=== PATIENT | male | born 1940 | race Caucasian/White ===

== ENCOUNTER 2022-11-19 21:21 | Inpatient (IN) | payer MEDICARE, BC ==
[~2022-11-19] VITALS: Ht 177.8 cm; Wt 65.8 kg
[2022-11-19 22:14] LABS: BASOPHILS ABSOLUTE AUTO 0.03 K/mm3 (0.00-0.23); BASOPHILS PERCENT AUTO 0 % (0-2); EOSINOPHILS ABSOLUTE AUTO 0.01 K/mm3 (0.00-0.68); EOSINOPHILS PERCENT AUTO 0 % (0-6); Hematocrit 44.6 % (37.0-53.0); Hemoglobin 15.7 g/dL (13.5-17.5); IMMATURE GRAN ABSOLUTE AUTO 0.08 K/mm3 (0.00-0.10); IMMATURE GRAN PERCENT AUTO 1 % (0-1); LYMPHOCYTES ABSOLUTE AUTO 0.47 K/mm3 (0.84-5.20); LYMPHOCYTES PERCENT AUTO 3 % (21-46); MONOCYTES ABSOLUTE AUTO 0.75 K/mm3 (0.16-1.47); MONOCYTES PERCENT AUTO 5 % (4-13); Mean Corpuscular HGB 31.7 pg (26.0-34.0); Mean Corpuscular HGB Conc 35.2 g/dL (31.5-36.5); Mean Corpuscular Volume 90 fL (80-100); Mean Platelet Volume 10.2 fL (9.1-12.4); NEUTROPHILS ABSOLUTE AUTO 14.95 K/mm3 (1.96-9.15); NEUTROPHILS PERCENT AUTO 92 % (41-73); Platelet Count 177 K/mm3 (150-400); RDW Coefficient Variation 12.9 % (11.7-14.2); RDW Standard Deviation 42.2 fL (35.1-46.3); Red Blood Cell Count 4.96 M/mm3 (4.30-5.90); White Blood Cell Count 16.29 K/mm3 (4.00-11.30)
[2022-11-19 22:32] LABS: Albumin, Blood 3.5 g/dL (3.4-5.0); Bilirubin, Total 1.2 mg/dL (0.1-1.0); Globulin, Blood 3.5 g/dL (2.2-4.0); Potassium, Blood 3.8 mmol/L (3.5-5.5)
[2022-11-20 02:11] VITALS: BP 189/94
[2022-11-20 03:12] VITALS: BP 201/99
--- NOTE | 2022-11-20 05:32 | NUR ---
shift assessment admit pt a/o no c/o pain states strength coming back but coordination still bad, pt cant write name so far. bp elevated and md was informed, NO NEW ORDERS. CONDOM CATH DRAINING.
[2022-11-20 05:49] LABS: Albumin, Blood 3.2 g/dL (3.4-5.0); Albumin/Globulin Ratio 1.1 (0.8-1.8); Bilirubin, Total 1.2 mg/dL (0.1-1.0); Calcium, Blood 8.5 mg/dL (8.5-10.1); Potassium, Blood 3.6 mmol/L (3.5-5.5); Total Protein, Blood 6.2 g/dL (6.4-8.2)
[2022-11-20 07:33] VITALS: BP 185/89
--- NOTE | 2022-11-20 17:03 | NUR ---
PATIENT A/OX3-4, FORGETFUL AT TIMES. WORKED WITH PT/OT/ST TODAY. UP WITH FWW AND 2 ASSIST TO CHAIR. L SIDE VERY WEAK, POOR COORDINATION. FAILED SWALLOW STUDY TODAY. PATIENT IS NOT INTERESTED IN HAVING A FEEDING TUBE AND WAS TOLD OF RISKS, BUT WANTS TO CONTINUE EATING. PLACED ON FULL LIQUID DIET. B/P REMAINS HIGH, HYDRALAZINE ORDERED PRN FOR SBP GREATER THAN 220. PATIENT IMPULSIVE AT TIMES, FALL PRECAUTIONS IN PLACE.
[2022-11-20 20:07] VITALS: BP 180/94
[2022-11-21 02:25] VITALS: BP 183/93
--- NOTE | 2022-11-21 05:57 | NUR ---
SHIFT SUMMARY PT LAYING IN BED DURING BEDSIDE REPORT, PT DENIED PAIN/SOB- PT IMPULSIVE AND SET OFF BED ALARM IN NIGHT, PT BALANCE OFF- PT FALLS BACK IN BED AND LEANS TO LEFT SIDE- REMOVED ITEMS THAT PT WAS TRYING TO REACH FOR NEXT TO BED TO REDUCE RISK OF FALLING OUT OF BED- PT REORIENTED T/O NIGHT AND REMINDED TO CALL FOR ASSISTANCE, REMOVED LEFT AC IV - IV LEAKING- RIGHT FOREARM IV IN PLACE AND FLUSHES WITHOUT PROBLEMS, BED LOW POSITION, CALL LIGHT WITHIN REACH
[2022-11-21 07:58] VITALS: BP 189/89
[2022-11-21 12:32] VITALS: BP 147/86
--- NOTE | 2022-11-21 18:39 | NUR ---
SHIFT SUMMARY PT A&OX4 AND IN PLEASENT MOOD T/O SHIFT. BED ALARM ON DUE TO IMPULSIVENESS. PT C/O OF FULL LIQUID DIET-SPEECH THERAPY NO LONGER FOLLOWING PT. TOLERATING DIET WELL. CALL LIGHT W/ IN REACH. 1X STAND PIVOT, 2X FWW W/ AMBULATION.
[2022-11-21 19:38] VITALS: BP 164/86
[2022-11-22 03:47] VITALS: BP 158/94
--- NOTE | 2022-11-22 05:47 | NUR ---
SHIFT SUMMARY PT LAYING IN BED DURING BEDSIDE REPORT- ASSISTED PT WITH CHANGING BRIEF- PT EXPRESSED BEING FRUSTRATED BECAUSE HE WANTS TO GO HOME AND HE WANTS TO EAT- EXPLAINED TO PT THAT HE WOULD BENEFIT FROM REHAB- PT DISAGREED AND STATED THAT HE IS GETTING BETTER AND CAN GO HOME AND GET BETTER- HE STATED THAT HE WANTED TO GO HOME TO EAT TOO- REMINDED PT THAT HE IS ON A FULL LIQUID DIET AND HE DISAGREED AND STATED THAT HE HAS NO SWALLOW ISSUES- SPOKE WITH PT RE: IMPORTANCE OF FOLLOWING DIRECTION AND ALLOWING SELF TO REHAB- PT CONTINUED TO DISAGREE AND PT UNABLE TO COMPREHEND HIS DEFICITS -WILL CONTINUE TO REORIENT PT OF SITUATION- PT SLEPT T/O NIGHT AND DENIED PAIN/SOB, BED LOW POSITION, CALL LIGHT WITHIN REACH, BED ALARM IN PLACE
[2022-11-22 08:02] VITALS: BP 151/79
[2022-11-22 16:46] VITALS: BP 140/82
--- NOTE | 2022-11-22 17:54 | NUR ---
SHIFT SUMMARY A&O X 4. CAN BE FORGETFUL OF HIS ACTIVITY/MOBILITY LIMITATIONS. L SIDED WEAKNESS. STATES HE FEELS MORE 'POOPED' TODAY, NOT MUCH 'GET UP & GO'. PARTICIPATED WITH PT & OT TODAY (SEE THERAPY NOTES). HAS BEEN IN THE ROOM MOST OF SHIFT, BOTH EDUCATED ON IGNITION SOURCES AND RISK OF INJURY WHILE O2 IS IN USE. PT & PT'S DENY SMOKING, BOTH STATE THEY UNDERSTAND THE RISK OF SMOKING ITSELF LET ALONE THE DANGER OF SMOKING IN THE PRESENCE OF O2. THIS AFTERNOON PT DEVELOPED A TEMP 101.2. PLACED A CALL TO DR. AUSTIN, ORDERS RECEIVED FOR TYLENOL. GIVEN ORDERED. TEMP IS DOWN TO 100.2. PLAN IS LIKELY DC TO REHAB/SNF.
[2022-11-22 19:15] VITALS: BP 128/76
[2022-11-23 04:29] VITALS: BP 164/95
--- NOTE | 2022-11-23 05:30 | NUR ---
SHIFT SUMMARY PT LAYING IN BED DURING BEDSIDE REPORT= PT DENIED PAIN/SOB AT TIME OF ASSESSMENT- IGNITION RISK ASSESSMENT DONE T/O SHIFT- PT REPORTS DOESN'T SMOKE AND DOESN'T HAVE ANY FORM OF [place] L[place]LE OR IGNITION- CHANGED BANDAGE TO SKIN TEAR IN UPPER LEFT ARM- PT TOLERATED WELL, PT INCONTIENT T/O NIGHT- PT CHANGED AND OFFERED REPOSITIONING- PT ABLE TO REPOSITION SELF- SPOKE WITH PT RE: DISCHARGING TO A REHAB- HE STATED THAT HE WANTED TO GO HOME BUT HIS WHO IS A RETIRED RN ENCOURAGED HIM TO GO TO REHAB SO HE CAN COME HOME IN THE FUTURE, BED LOW POSITION, CALL LIGHT WITHIN REACH, BED ALARM IN PLACE
[2022-11-23 07:44] VITALS: BP 147/89
[2022-11-23 16:26] VITALS: BP 142/87
[2022-11-23 19:40] VITALS: BP 114/88
--- NOTE | 2022-11-23 19:52 | NUR ---
SHIFT SUMMARY PT A&O X 4. VSS. PT WILLINGLY PARTICIPATED WITH PT TODAY. (SEE PHYS THERAPY NOTES). APPETITE IS GOOD, IS BRINGING IN PT'S PREFERRED FOODS. DRSNG ON L ARM TEAR C/D/I. BED ALARM ON. PLAN IS DC TO REHAB/SNF UPON DC ONCE BED AVAILABLE.
--- NOTE | 2022-11-24 03:58 | NUR ---
WOUND DRESSING PT REQUESTED BANDAGES TO BE CHANGED TO LEFT UPPER ARM. NON ADHERANT DRESSING AND NON STICK PETROLIUM DRESSING PLACED TO SKIN TEAR AND RE-COVERED WITH GAUZE WRAP AND TUBING SLEEVE.
[2022-11-24 04:00] LABS: BASOPHILS ABSOLUTE AUTO 0.04 K/mm3 (0.00-0.23); BASOPHILS PERCENT AUTO 0 % (0-2); EOSINOPHILS ABSOLUTE AUTO 0.19 K/mm3 (0.00-0.68); EOSINOPHILS PERCENT AUTO 2 % (0-6); Hematocrit 41.3 % (37.0-53.0); Hemoglobin 14.6 g/dL (13.5-17.5); IMMATURE GRAN ABSOLUTE AUTO 0.03 K/mm3 (0.00-0.10); IMMATURE GRAN PERCENT AUTO 0 % (0-1); LYMPHOCYTES ABSOLUTE AUTO 0.72 K/mm3 (0.84-5.20); LYMPHOCYTES PERCENT AUTO 8 % (21-46); MONOCYTES ABSOLUTE AUTO 0.86 K/mm3 (0.16-1.47); MONOCYTES PERCENT AUTO 10 % (4-13); Mean Corpuscular HGB 31.5 pg (26.0-34.0); Mean Corpuscular HGB Conc 35.4 g/dL (31.5-36.5); Mean Corpuscular Volume 89 fL (80-100); Mean Platelet Volume 10.8 fL (9.1-12.4); NEUTROPHILS ABSOLUTE AUTO 7.11 K/mm3 (1.96-9.15); NEUTROPHILS PERCENT AUTO 80 % (41-73); Platelet Count 158 K/mm3 (150-400); RDW Coefficient Variation 12.6 % (11.7-14.2); RDW Standard Deviation 41.5 fL (35.1-46.3); Red Blood Cell Count 4.64 M/mm3 (4.30-5.90); White Blood Cell Count 8.95 K/mm3 (4.00-11.30)
[2022-11-24 04:24] LABS: Bun/Creatinine Ratio 25.1 (12.0-20.0); Calcium, Blood 8.4 mg/dL (8.5-10.1); Potassium, Blood 3.9 mmol/L (3.5-5.5)
--- NOTE | 2022-11-24 06:37 | NUR ---
SHIFT SUMMARY PT ADMIT FOR INFARCT W/ LEFT SIDE WEAKNESS. A&OX4, COOPERATIVE W/ CARE. PT DENIES PAIN, SOB, N/V, N/T, ALTHOUGH WEAKNESS TO LEFT SIDE. 1 ASSIST FOR BSC. DRESSINGS TO LEFT UPPER ARM C/D/I AND R/T FALL AT HOME PRIOR TO RECENT CVA ADMISSION. PT ALSO HAS RANDOM SCRAPES AND BANDAGES TO SKIN TEARS R/T FALLS AT HOME TO L KNEE, HAND. PT USE OF ATTENDS R/T URGENCY INCONT AND ASSISTED TO CHANGE. PT ABLE TO TURN, LIFT FOR CHANGING ATTENDS. PLANS FOR DISCHARGE TO IRU IN [place] FOR REHAB. PT REPORTED REQUIRES HIM TO AMBULATE PRIOR TO RETURN HOME. NO ACUTE CHANGES THIS SHIFT. CALL LIGHT W/IN REACH.
[2022-11-24 15:27] VITALS: BP 142/85
--- NOTE | 2022-11-24 16:04 | NUR ---
PATIENT & FAMILY EDUCATED RE: IGNITION SOURCES & RISK OF INJURY WHILE O2 IS IN USE. PT DENIES SMOKING, BOTH PT & FAMILY VERBALIZE UNDERSTANDING.
--- NOTE | 2022-11-24 16:26 | NUR ---
SHIFT SUMMARY A&O X 4. VSS. PT UP TO CHAIR WITH 1 PERSON MIN ASSIST WITH GB & FWW. L SIDE WEAK THOUGH PT IS DOING BETTER WITH STRENGTH AND STABILITY. (SEE PHYS THERAPY NOTES) IN TO VISIT TODAY. PT IS PLEASANT & COOPERATIVE WITH ALL CARE. IS INC OF URINE AT TIMES. PT SAT UP IN CHAIR FOR BFAST AND REMAINED UP FOR A FEW HRS. PLAN IS FOR REHAB/SNF UPON DC. CALL LIGHT WITHIN REACH & BED IN LOW POSITION.
--- NOTE | 2022-11-24 16:36 | NUR ---
ASSUMING CARE OF PT
--- NOTE | 2022-11-24 16:37 | NUR ---
REPORT GIVEN TO RECEIVING RN, PRESLEY.
[2022-11-24 19:31] VITALS: BP 181/87
[2022-11-24 22:11] VITALS: BP 156/86
[2022-11-25 04:29] VITALS: BP 160/85
--- NOTE | 2022-11-25 05:34 | NUR ---
SHIFT SUMMARY ADMIT FOR CVA W/ L SIDE WEAKNESS. A&OX4, PLEASANT AND COOPERATIVE W/ CARE. PT EXPERIENCING BOWEL AND BLADDER INCONTINENCE W/ USE OF ATTENDS AND MAN PADS. SKIN TEAR TO LEFT UPPER ARM REDRESSED THIS SHIFT W/ XERO FORM PATROLIUM GAUZE, NON STICK DRESSING, AND WRAPPED W/ ROLLED GAUZE THEN COVERED WITH MESH TUBING. PT USE OF LEFT LEG BETTER THAN PREVIOUS SHIFT AND CONTINUES TO HAVE WEAKNESS TO LEFT ARM. PT FIDGETS W/ COVERS FREQUENTLY, UNSURE IF THIS WAS PREVIOUS [facility]. PT AWAITING ON REHAB PLACEMENT, POSSIBLY IN [place] TODAY. NO ACUTE CHANGES THIS SHIFT, WILL REPORT OFF TO DAY SHIFT STAFF.
[2022-11-25 07:52] VITALS: BP 183/86
[2022-11-25 15:49] VITALS: BP 149/76
--- NOTE | 2022-11-25 18:12 | NUR ---
SUMMARY NO ACUTE CHANGES T/O SHIFT. PT WORKED WITH THERAPY. HAD SHOWER THIS SHIFT. INCONTINENT OF URINE AT TIMES, WELL BOWELS. GOT UP THIS AFTERNOON WITH 1 PERSON MOD ASSIST TO BSC USING GAIT BELT AND TORI WALKER. HAD SOFT BROWN BM. PLAN TO DC TOMORROW TO REGISTER IRU. REVIEWED FIRE SAFETY WITH PT AND SPOUSE; VERBALIZED UNDERSTANDING AND DENIED ANY TOBACCO, MATCHES OR LIGHTERS. CALL LIGHT IN REACH.
[2022-11-25 23:02] VITALS: BP 156/87
[2022-11-26 07:29] VITALS: BP 147/94
--- NOTE | 2022-11-26 07:42 | NUR ---
SHIFT SUMMARY AOX4. VSS. DENIES PAIN, N/V OR DYSPNEA. HAS LUE WEAKNESS c GROSS MOVEMENT & CAN WIGGLE L HAND FINGERS. DENIES N/T. ABLE TO FEEL TOUCH. 1P ASSIST c TORI WALKER TO BSC. PLAN TO POSSIBLY DC TO [facility] THIS AM. CALL LIGHT IN REACH.
[2022-11-26] MEDS ORDERED: AMLO5 PO (11:35)
[2022-11-26] MEDS ORDERED: ATOR40TA PO (11:35)
[2022-11-26] MEDS ORDERED: ASPI81CH PO (11:35)
[2022-11-26] MEDS ORDERED: ACET325 PO (11:35)
[2022-11-26] MEDS ORDERED: CLOP75 PO (11:36)
[2022-11-26] MEDS ORDERED: LOSA50 PO (11:36)
--- NOTE | 2022-11-26 11:45 | NUR ---
REPORT TO [facility] REPORT CALLED TO ADALBERTO BROWN AT [facility]. CONTINUE POC.
--- NOTE | 2022-11-26 12:06 | NUR ---
DISCHARGE PT IV REMOVED PRESSURE DRESSING APPLIED. REPORT CALLED. PT TANSPORTED AND ASSISTED INTO CAR FROM W/C. PT DID VERY WELL. CONTINUE POC.
== END 2022-11-26 11:51 | DRG 64 ==
LOC: ER 21:21 → MEDS 21:22 → ERHOLD 21:22 → ER 21:22 → MEDS 11-20 01:55 → ERHOLD 11-20 01:55 → MEDS 11-20 13:06
PROVIDERS: Family Medicine; Internal Medicine; Student in an Organized Health Care Education/Training Program; ADMIT Internal Medicine
DX: I63.89 Other cerebral infarction (principal); E43 Unspecified severe protein-calorie malnutrition; G81.94 Hemiplegia, unspecified affecting left nondominant side; I10 Essential (primary) hypertension; D72.828 Other elevated white blood cell count; R50.9 Fever, unspecified; R29.810 Facial weakness; T14.8XXA Other injury of unspecified body region, initial encounter; I65.01 Occlusion and stenosis of right vertebral artery; I65.23 Occlusion and stenosis of bilateral carotid arteries; R91.8 Other nonspecific abnormal finding of lung field; R13.13 Dysphagia, pharyngeal phase; Z91.148 Patient's other noncompliance with medication regimen for other reason; Z87.891 Personal history of nicotine dependence; Z68.20 Body mass index [BMI] 20.0-20.9, adult; X58.XXXA Exposure to other specified factors, initial encounter
CPT/HCPCS: 36415; 70450; 70496; 70498; 70551; 71045; 74230; 80048; 80053; 85025; 92610; 92611; 93005; 93010; 93306; 96372; 97110; 97112; 97116; 97162; 97166; 97530; 97535; 99285-25; A9270; G0378; J1650; Q9967

== ENCOUNTER 2024-06-11 20:12 | Emergency (ER) | payer BC ==
[~2024-06-11] VITALS: Ht 177.8 cm; Wt 63.5 kg
[~2024-06-11 20:12] MED LIST: ACET325 PO; AMLO5 PO; ASPI81CH PO; ATOR40TA PO; CEFP200 PO; CLOP75 PO; LOSA50 PO; OXYC5 PO
[2024-06-11] MEDS ORDERED: TAMS.4ER PO (20:23)
[2024-06-11] MEDS ORDERED: NS 500 ML IV SCH (20:30)
[2024-06-11 21:03] LABS: BASOPHILS ABSOLUTE AUTO 0.06 K/mm3 (0.00-0.23); BASOPHILS PERCENT AUTO 0 % (0-2); EOSINOPHILS ABSOLUTE AUTO 0.13 K/mm3 (0.00-0.68); EOSINOPHILS PERCENT AUTO 1 % (0-6); Hematocrit 35.6 % (37.0-53.0); Hemoglobin 12.1 g/dL (13.5-17.5); IMMATURE GRAN ABSOLUTE AUTO 0.08 K/mm3 (0.00-0.10); IMMATURE GRAN PERCENT AUTO 0 % (0-1); LYMPHOCYTES ABSOLUTE AUTO 0.43 K/mm3 (0.84-5.20); LYMPHOCYTES PERCENT AUTO 2 % (21-46); MONOCYTES ABSOLUTE AUTO 1.03 K/mm3 (0.16-1.47); MONOCYTES PERCENT AUTO 6 % (4-13); Mean Corpuscular HGB 30.4 pg (26.0-34.0); Mean Corpuscular Volume 89 fL (80-100); Mean Platelet Volume 10.3 fL (9.1-12.4); NEUTROPHILS ABSOLUTE AUTO 16.49 K/mm3 (1.96-9.15); NEUTROPHILS PERCENT AUTO 91 % (41-73); Platelet Count 312 K/mm3 (150-400); RDW Coefficient Variation 14.6 % (11.7-14.2); RDW Standard Deviation 47.9 fL (35.1-46.3); Red Blood Cell Count 3.98 M/mm3 (4.30-5.90); White Blood Cell Count 18.22 K/mm3 (4.00-11.30)
[2024-06-11 21:10] LABS: Free Thyroxine 1.85 ng/dL (0.70-1.60); Thyroid Stimulating Hormone 4.07 uIU/mL (0.360-4.800)
[2024-06-11 21:11] LABS: Albumin, Blood 2.8 g/dL (3.4-5.0); Albumin/Globulin Ratio 0.7 (0.8-1.8); Bilirubin, Total 0.5 mg/dL (0.1-1.0); Bun/Creatinine Ratio 23.9 (12.0-20.0); Calcium, Blood 8.6 mg/dL (8.5-10.1); Creatinine, Blood 0.67 mg/dL (0.60-1.20); Globulin, Blood 3.8 g/dL (2.2-4.0); Potassium, Blood 4.2 mmol/L (3.5-5.5); Total Protein, Blood 6.6 g/dL (6.4-8.2)
[2024-06-11 21:30] LABS: CORONAVIRUS COVID-19 AG Negative (NEGATIVE); INFLUENZA A AG Negative (NEGATIVE); INFLUENZA B AG Negative (NEGATIVE)
[2024-06-11 23:05] LABS: Source, Urine Clean Catch
[2024-06-11 23:09] LABS: Bilirubin, Urine Neg (Neg); Blood, Urine 4+ (Neg); Glucose Qualitative, Urine Neg (Neg); Ketones, Urine 1+ (Neg); Leukocyte Esterase, Urine 2+ (Neg); Nitrite, Urine Pos (Neg); Protein, Urine 2+ (Neg); Specific Gravity, Urine 1.015 (1.003-1.022); Urobilinogen, Urine NORM (Normal)
[2024-06-11 23:22] LABS: Appearance, Urine Hazy (Clear); Color, Urine Yellow (P-Yellow)
[2024-06-11 23:23] LABS: Squamous Epithelial Cells Mod /hpf (Few)
[2024-06-11 23:24] LABS: Bacteria Many /hpf
[2024-06-11 23:45] VITALS: BP 133/66
[2024-06-12] MEDS ORDERED: Cephalexin Monohydrate 500 MG Cap PO ONE (00:05)
[2024-06-12] MEDS ORDERED: CEPH500 PO ×2 (00:25→00:52)
== END 2024-06-12 01:08 | disposition home or self-care (01) ==
LOC: ER 20:12
PROVIDERS: Student in an Organized Health Care Education/Training Program
DX: R55 Syncope and collapse (principal); N30.00 Acute cystitis without hematuria; R33.9 Retention of urine, unspecified; Z87.891 Personal history of nicotine dependence; Z79.82 Long term (current) use of aspirin; Z79.899 Other long term (current) drug therapy; Z79.02 Long term (current) use of antithrombotics/antiplatelets; Z91.048 Other nonmedicinal substance allergy status
CPT/HCPCS: 51702; 80053; 81001; 83735; 84439; 84443; 84484; 85025; 87086; 87428-QW; 93005; 93010; 96360; 99284-25; A9270; J7030